=== PATIENT | female | born 1995 | race Caucasian/White ===

== ENCOUNTER 2023-06-29 14:51 | Outpatient (CLI) | payer BC, SELFPAY ==
[2023-06-29 18:16] LABS: Free T4 Free Thyroxine 1.28 ng/mL (0.78-2.19)
== END 2023-06-29 14:52 | disposition home or self-care (01) ==
LOC: ANHWCLAB 14:52
PROVIDERS: Visit Provider Nurse Practitioner Family
DX: E03.9 Hypothyroidism, unspecified (principal); O99.280 Endocrine, nutritional and metabolic diseases complicating pregnancy, unspecified trimester; Z3A.00 Weeks of gestation of pregnancy not specified
CPT/HCPCS: 36415; 84439; 84443